=== PATIENT | female | born 1955 | race Caucasian/White ===

== ENCOUNTER 2021-11-20 17:47 | Emergency (ER) | payer MEDICARE, OTHER ==
[2021-11-20 17:54] VITALS: BP 142/52
[2021-11-20] MEDS ORDERED: TETANUS/DIPHTHERIA/PERTUSSIS 0.5 ML SYRINGE IM ONE (18:00)
[2021-11-20] MEDS ORDERED: HYDROcod/ACETAM 5/325 MG TABLET PO STA (18:00)
--- NOTE | 2021-11-20 18:01 | ED Physician Documentation ---
PD HPI UPPER EXT INJURY - Stated complaint Stated Complaint: FALL, L WRIST PX - Chief complaint Chief Complaint: Trauma Ext - History obtained from History obtained from: Patient - Additonal information Additional information: 66-year-old woman with unknown tetanus status had a trip and fall as she was walking her lab dog and its deer. She had the leash wrapped around her wrist and it pulled her and she fell forward onto outstretched left wrist. She also has some scrapes on her knees. No other injuries. She is able to walk and bear weight just fine. Review of Systems Constitutional: reports: Reviewed and negative Eyes: reports: Reviewed and negative Cardiac: reports: Reviewed and negative Respiratory: reports: Reviewed and negative PD PAST MEDICAL HISTORY - Past Medical History Cardiovascular: Hypertension Respiratory: Asthma Endocrine/Autoimmune: Type 1 diabetes GI: GERD HEENT: Other - Past Surgical History Past Surgical History: No - Present Medications Home Medications: Ambulatory Orders Medication Instructions Recorded Confirmed Acyclovir 400 mg PO DAILY 02/08/13 02/08/13 Aspirin [Children's Aspirin] 81 mg PO DAILY 02/08/13 02/08/13 Atenolol [Tenormin] 50 mg PO DAILY 02/08/13 02/08/13 Beclomethasone 80 Mcg [Qvar 80] 1 inhaler NEB DAILY 02/08/13 02/08/13 Doxycycline [Vibramycin] 100 mg PO ONCE 02/08/13 02/08/13 Famotidine 40 mg PO DAILY 02/08/13 02/08/13 Gabapentin 300 mg PO DAILY 02/08/13 02/08/13 Hydrochlorothiazide 25 mg PO DAILY 02/08/13 02/08/13 Insulin Aspart [Novolog] 30 unit SQ TIDWM 02/08/13 02/08/13 Insulin Glargine,Hum.rec.anlog 100 unit SQ BID 02/08/13 02/08/13 [Lantus] Meloxicam [Mobic] 7.5 mg PO DAILY 02/08/13 02/08/13 Polymyxin B Sulf/Trimethoprim 10 ml OP Q3H #1 bottle 02/08/13 [Polytrim Eye Drops] Simvastatin 80 mg PO DAILY 02/08/13 02/08/13 lisinopriL [Lisinopril] 40 mg PO DAILY 02/08/13 02/08/13 HYDROcod/ACETAM 5/325 [[place] 5/325] 1 - 2 tab PO Q6H PRN #15 tablet 11/20/21 - Allergies Allergies/Adverse Reactions: Allergies Allergy/AdvReac Type Severity Reaction Status Date / Time No Known Drug Allergies Allergy Verified 11/20/21 17:51 - Social History Does the pt smoke?: No Smoking Status: Never smoker Does the pt drink ETOH?: No Does the pt have substance abuse?: No - Immunizations Immunizations are current?: Yes PD ED PE NORMAL - Vitals Vital signs reviewed: Yes - General General: Alert and oriented X 3, No acute distress - HEENT HEENT: PERRL, EOMI - Neck Neck: Supple, no meningeal sign, No bony TTP - Cardiac Cardiac: RRR, No murmur - Respiratory Respiratory: No respiratory distress, Clear bilaterally - Abdomen Abdomen: Normal bowel sounds, Soft, Non tender - Back Back: No CVA TTP, No spinal TTP - Derm Derm: Normal color, Warm and dry - Extremities Extremities: Other (Tender about the left distal radius with mild swelling there. No obvious deformity. Limited range of motion due to pain. The remainder of her extremities are nontender with full range of motion at all major joints but she does have some small abrasions over the anterior parts of both knees and th) - Neuro Neuro: Alert and oriented X 3, Normal speech Results - Vitals Vitals: Vital Signs - 24 hr 11/20/21 17:51 Temperature 36.5 C Heart Rate 84 Respiratory 16 Rate Blood Pressure 142/52 H O2 Saturation 98 Oxygen O2 Source Room air PD MEDICAL DECISION MAKING - ED course ED course: 66-year-old woman seen for left wrist injury, x-rays negative. Clinically not consistent with a scaphoid injury as she is not tender over the snuffbox, has no pain with axial loading of the thumb. She has some scrapes and tetanus was updated and placed in a Velcro wrist splints. The patient and family were counseled as to the diagnosis and need for follow- up. I counseled the patient with regard to signs and symptoms that would necessitate an urgent reevaluation in the emergency department. They understand they are welcome to return at any time if worse or if not improving as expected. This document was made in part using voice recognition software. While efforts are made to proofread this documents, sound alike and grammatical errors may occur. Departure - Departure Disposition: Home, Self Care Clinical Impression: Left wrist sprain Condition: Good Record reviewed to determine appropriate education?: Yes Instructions: ED Sprain Wrist Prescriptions: HYDROcod/ACETAM 5/325 [[place] 5/325] 1 - 2 tab PO Q6H PRN #15 tablet PRN Reason: Pain Comments: If not better in a week, follow-up with your primary care physician for recheck and reevaluation, potential repeat x-rays. Return for new or worsening symptoms. I sent your prescription electronically to [facility] in [place]. I am prescribing a short course of narcotic pain medication for you. These are potentially dangerous and addictive medications that should be used carefully. These medications may constipate you. Take an [id number] stool softener (docusate) twice daily with plenty of water while taking these medications. If you go 24 hours without a bowel movement, take [id number] miralax, per package instructions. Do not drink or drive while taking these medications. If you received narcotic or sedating medications while in the emergency department, do not drive for 24 hours. Store this medication in a safe, secure place and out of reach of children. It is a violation of federal law to give or sell this medication to another person or to use in a manner other than prescribed. The ED will not refill narcotic prescriptions, including prescriptions lost or stolen. To dispose of unwanted medications: 1. [facility] at [address] in [place] has a medication drop box. They accept prescription medications (in pill form) Saturday through Saturday 9:00 a.m. to 5:00 p.m. 2. The [facility] [employer] [facility] accepts prescription medications (in pill form only) for disposal year round. Call for more information. 3. Contact the [facility] for the next [facility] sponsored prescription drug collection event. , [phone], or [phone]; Note that many narcotic pain relievers also contain Tylenol/acetaminophen. Please ensure that your total dose of acetaminophen from all sources does not exceed 3 g (3000 mg) per day. Note for your records that she received a Tdap shot today.
--- NOTE | 2021-11-20 18:16 | XRAY Report ---
PROCEDURE: Wrist 4 View LT INDICATIONS: Trauma TECHNIQUE: 4 views of the wrist were acquired. COMPARISON: None FINDINGS: Bones: Postsurgical changes are seen in first and second metatarsal bases. No gross hardware looseni ng or failure. No fractures or dislocations. Wrist joint osteoarthritic changes are seen. No suspicio us bony lesions. Scaphoid view: Scaphoid is intact. Soft tissues: No suspicious soft tissue calcifications. IMPRESSION: Wrist joint osteoarthritis. Prior surgery at first and second metacarpal bases. No acute fracture or dislocation. Reviewed by: Jonny Robison MD on 11/20/2021 5:15 PM AKIRIS Approved by: Jonny Robison MD on 11/20/2021 5:15 PM AKDT Station ID: [id number]
[2021-11-20] MEDS ORDERED: HYDROcod/ACET 5/325 Prepack 4 PO STA (18:26)
== END 2021-11-20 18:43 | disposition home or self-care (01) ==
LOC: ED 17:47
DX: S63.502A Unspecified sprain of left wrist, initial encounter (principal); X58.XXXA Exposure to other specified factors, initial encounter; Y93.K1 Activity, walking an animal; E10.9 Type 1 diabetes mellitus without complications; Z79.4 Long term (current) use of insulin; I10 Essential (primary) hypertension; Z23 Encounter for immunization; Z71.85 Encounter for immunization safety counseling
CPT/HCPCS: 73110; 90471; 90715; 99283; A9270